=== PATIENT | male | born 1990 | race Caucasian/White ===

== ENCOUNTER 2017-09-14 10:38 | Emergency (ER) | payer OTHER ==
[~2017-09-14] VITALS: Ht 167.6 cm; Wt 88.5 kg
[2017-09-14 10:40] VITALS: Ht 167.6 cm; Wt 88.5 kg
[2017-09-14] MEDS ORDERED: KETOROLAC 60 MG INJ IM STA (11:08)
[2017-09-14] MEDS ORDERED: HYDROCODONE/APAP (5/325) TAB PO ONE (11:30)
--- NOTE | 2017-09-14 11:48 | RADRPT ---
PROCEDURE: XR Left rib series. CLINICAL INDICATION: Trauma TECHNIQUE: Three views of the left rib cage are available for review COMPARISON: None available FINDINGS: There is a minimally displaced fracture of the left lateral 10th rib. The lungs are adequately expanded and clear. There is no focal consolidation, pleural effusion, or pneumothorax. The heart and mediastinal contours are unremarkable. RPTAT: EE IMPRESSION: 1. Minimally-displaced fracture of the left lateral tenth rib. .Chanel Andujar MD, MD Date Time Electronically viewed and signed by .Chanel Andujar MD, MD on 09/14/2017 11:53 .T/
[2017-09-14] MEDS ORDERED: IBUP-1542 PO (11:58)
[2017-09-14] MEDS ORDERED: HYDR-906 PO (11:58)
--- NOTE | 2017-09-14 12:03 | ERD ---
ER Documentation Chief Complaint Date/Time DATE: 09/14/17 TIME: 12:00 Chief Complaint Complains of left rib pain since last night HPI This 26-year-old male complains of left rib pain after hitting it was given with his friends 2 days ago. He thought the pain defect on his left rib. Denies any hematuria.. Resolved. Denies fevers, hemoptysis, shortness of breath. His pain with inspiration and feels a palpable area of crepitance in the area of pain. He denies any hematuria. ROS All systems reviewed and are negative except as per history of present illness. Medications Home Meds Active Scripts Ibuprofen* (Motrin*) 600 Mg Tab, 600 MG PO Q6, #20 TAB Prov:CANDICE MCRAE MD 09/14/17 Hydrocodone/Acetaminophen ([place] 5-325 Tablet) 1 Each Tablet, 1 TAB PO Q6H Y for PAIN, #14 TAB Prov:CANDICE MCRAE MD 09/14/17 Allergies Allergies: Coded Allergies: No Known Allergy (Unverified , 09/14/17) PMhx/Soc Medical and Surgical Hx: pt denies Medical Hx, pt denies Surgical Hx Hx Alcohol Use: Yes Hx Substance Use: No Hx Tobacco Use: Yes Smoking Status: Current some day smoker Physical Exam Vitals Vital Signs Date Time Temp Pulse Resp B/P Pulse Ox O2 Delivery O2 Flow Rate FiO2 09/14/17 10:40 98.7 73 20 138/88 99 Physical Exam Const: []Alert, [id number]. Head: Atraumatic Eyes: Normal Conjunctiva ENT: Normal External Ears, Nose and Mouth. Neck: Full range of motion..~ No meningismus. Resp: Clear to auscultation bilaterally. There is tenderness on the left ribs laterally. There is no erythema, deformities. There is no appreciable flank tenderness or abdominal tenderness. Cardio: Regular rate and rhythm, no murmurs Abd: Soft, non tender, non distended. Normal bowel sounds Skin: No petechiae or rashes Back: No midline or flank tenderness Ext: No cyanosis, or edema Neur: Awake and alert Psych: Normal Mood and Affect Results 24 hrs Current Medications Medications (Trade) Dose Ordered Sig/Amadeo Route PRN Reason Start Time Stop Time Status Last Admin Dose Admin Acetaminophen/ Hydrocodone Bitart ([place] (5/325)) 1 tab ONCE ONCE PO 09/14/17 11:30 09/14/17 11:31 DC 09/14/17 11:13 Ketorolac Tromethamine (Toradol) 60 mg ONCE STAT IM 09/14/17 11:08 09/14/17 11:10 DC 09/14/17 11:14 Procedures/MDM AP/lateral 2 view left rib series shows minimally displaced T10 lateral rib fracture. There is no evidence of hemothorax or pneumothorax. Impression-left T10 rib fracture. Patient was given Toradol 60 mg IM. He was given [place] 5 mg and albuterol. Patient presents with an isolated left T10 rib fracture without evidence of complications, infection, acute abdomen hematuria. Discharged home with a short prescription of [place] ibuprofen, primary care follow-up and return precautions. Departure Diagnosis: Primary Impression: Rib fracture Encounter type: initial encounter Rib fracture type: single rib Fracture type: closed Laterality: left Qualified Code: S22.32XA - Closed fracture of one rib of left side, initial encounter Condition: Stable Patient Instructions: Rib Fracture (Broken Rib) Additional Instructions: There is a single broken rib without complications identified an area of pain. Recheck for fevers, shortness of breath, blood, new worsening symptoms or primary care doctor. CANDICE MCRAE MD Sep 14, 2017 12:03
== END 2017-09-14 14:30 | disposition home or self-care (01) ==
LOC: FTE 10:38
DX: S22.32XA Fracture of one rib, left side, initial encounter for closed fracture (principal); F17.210 Nicotine dependence, cigarettes, uncomplicated; W22.8XXA Striking against or struck by other objects, initial encounter; Y92.9 Unspecified place or not applicable
CPT/HCPCS: 71100; 96372; J1885; Z7502; Z7610